=== PATIENT | male | born 1965 | race Caucasian/White ===

== ENCOUNTER 2016-06-26 07:07 | Emergency (ER) | payer OTHER ==
[2016-06-26 07:17] VITALS: BP 143/73
--- NOTE | 2016-06-26 07:39 | ED ---
Respiratory - HPI Summary HPI Summary: cough and congestion for two days. son had similar illness recently. - History of Current Complaint Chief Complaint: UCRespiratory Stated Complaint: SORE THROAT COUGH Time Seen by Provider: 06/26/16 07:16 Hx Obtained From: Patient Onset/Duration: Gradual Onset Timing: Constant Initial Severity: Moderate Current Severity: Moderate Character: Cough (Nonproductive) Sputum Amount: None Aggravating Factor(s): Deep Breaths Alleviating Factor(s): Nothing Associated Signs and Symptoms: Chills, Nasal Congestion, Sinus Discomfort - Risk Factors Status Asthmaticus Risk Factors: Negative Pulmonary Embolism Risk Factors: Negative Cardiac Risk Factors: Negative Pseudomonas Risk Factors: Negative - Allergy/Home Medications Allergies/Adverse Reactions: Allergies Allergy/AdvReac Type Severity Reaction Status Date / Time Amoxicillin [From Augmentin] Allergy Severe Rash and Verified 06/26/16 07:18 Difficulty Breathing Clavulanic Acid Allergy Severe Rash and Verified 06/26/16 07:18 [From Augmentin] Difficulty Breathing Penicillins Allergy Rash and Verified 06/26/16 07:18 Difficulty Breathing Home Medications: Home Medications Albuterol HFA INHALER* [Ventolin HFA Inhaler*] 1 puff INH Q4H PRN 06/26/16 [ History Confirmed 06/26/16] PMH/Surg Hx/FS Hx/Imm Hx Endocrine/Hematology History: Denies: Hx Anticoagulant Therapy, Hx Diabetes, Hx Thyroid Disease Cardiovascular History: Reports: Hx Hypertension - "A little bit--but not taking any medications for it at this time." Respiratory History: Reports: Hx Asthma Denies: Hx Chronic Obstructive Pulmonary Disease (COPD), Hx Lung Cancer, Hx Pneumonia, Hx Pulmonary Embolism GI History: Denies: Hx Gall Bladder Disease, Hx Gastrointestinal Bleed, Hx Ulcer, Hx Urosepsis History: Denies: Hx Kidney Stones, Hx Renal Disease Neurological History: Denies: Hx Dementia, Hx Migraine, Hx Seizures, Hx Transient Ischemic Attacks (TIA) Psychiatric History: Denies: Hx Anxiety, Hx Depression, Hx Schizophrenia, Hx Bipolar Disorder - Surgical History Surgery Procedure, Year, and Place: benign tumor removed in left side of neck 2006, tonsils 1999, tubes placed in ears 1999 Infectious Disease History: No Infectious Disease History: Denies: Hx Clostridium Difficile, Hx Hepatitis, Hx Human Immunodeficiency Virus (HIV), Hx of Known/Suspected MRSA, Hx Shingles, Hx Tuberculosis, Hx Known/ Suspected VRE, Hx Known/Suspected VRSA, History Other Infectious Disease, Traveled Outside the [place] in Last 30 Days - Family History Known Family History: Positive: Cardiac Disease, Hypertension - Social History Occupation: Employed Full-time Alcohol Use: None Substance Use Type: Reports: None Smoking Status (MU): Never Smoked Tobacco Review of Systems All Other Systems Reviewed And Are Negative: Yes Physical Exam Triage Information Reviewed: Yes Vital Signs On Initial Exam: Initial Vitals Temp Pulse Resp BP Pulse Ox 98 F 71 20 143/73 99 06/26/16 07:11 06/26/16 07:11 06/26/16 07:11 06/26/16 07:11 06/26/16 07:11 Vital Signs Reviewed: Yes Appearance: Positive: Ill-Appearing - frequent dry cough with what appears like malaise but still pleasant and non toxic., Obese. Negative: Pain Distress Skin: Positive: Warm Eyes: Positive: Normal, EOMI, CLAUDE ENT: Positive: Pharynx normal, Nasal congestion, TMs normal. Negative: Pharyngeal erythema, Nasal drainage, TM bulging, TM dull, TM red, Tonsillar swelling, Tonsillar exudate, Trismus, Muffled/hoarse voice Neck: Positive: Supple, Nontender, No Lymphadenopathy. Negative: Nuchal Rigidity Respiratory/Lung Sounds: Positive: Clear to Auscultation, Breath Sounds Present. Negative: Decreased Breath Sounds, Rales, Rhonchi, Subcutaneous Emphysema Cardiovascular: Positive: Normal, RRR Abdomen Description: Positive: Nontender, No Organomegaly, Soft Musculoskeletal: Positive: Normal. Negative: Edema Left, Edema Right Neurological: Positive: Normal, Sensory/Motor Intact, Alert, Oriented to Person Place, Time, CN Intact II-III Psychiatric: Positive: Normal Diagnostics - Vital Signs Vital Signs Temp Pulse Resp BP Pulse Ox 06/26/16 07:11 98 F 71 20 143/73 99 - Laboratory Lab Statement: Any lab studies that have been ordered have been reviewed, and results considered in the medical decision making process. Disposition - Diagnoses Provider Diagnoses: Acute bronchitis Discharge - Discharge Plan Condition: Good Disposition: HOME Prescriptions: Acetaminop/Codeine 30 MG TAB* [Tylenol/Codeine 30 MG TAB*] 1 tab PO Q8H PRN #20 tab MDD 3 PRN Reason: Cough Benzonatate CAP* [Tessalon 100 MG CAP*] 100 mg PO TID PRN #20 cap PRN Reason: Cough Patient Education Materials: Viral Syndrome (ED), Acute Bronchitis (ED) Referrals: Kell Schofield [Primary Care Provider] - If Needed
== END 2016-06-26 08:02 | disposition home or self-care (01) ==
LOC: UCCORT 07:07
DX: J20.9 Acute bronchitis, unspecified (principal); I10 Essential (primary) hypertension; J45.909 Unspecified asthma, uncomplicated; E66.9 Obesity, unspecified; Z88.1 Allergy status to other antibiotic agents; Z88.0 Allergy status to penicillin
CPT/HCPCS: 99212; G0463

== ENCOUNTER 2017-12-10 08:46 | Emergency (ER) | payer OTHER ==
--- NOTE | 2017-12-10 10:00 | UC ---
Throat Pain/Nasal Luther HPI - HPI Summary HPI Summary: 52 yo male presents with sore throat, body aches, headache, and feeling hot/ cold for 2 days. He has not taken his temperature. Has been taking tylenol, ibuprofen, throat lozenges, and OTC cold and flu medication with mild relief. Denies cough, SOB, chest pain, abdominal pain. - History of Current Complaint Stated Complaint: SORE THROAT, EARS Time Seen by Provider: 12/10/17 09:59 Hx Obtained From: Patient Onset/Duration: Sudden Onset Severity: Moderate Pain Intensity: 8 Pain Scale Used: 0-10 Numeric - Allergies/Home Medications Allergies/Adverse Reactions: Allergies Allergy/AdvReac Type Severity Reaction Status Date / Time amoxicillin [From Augmentin] Allergy Severe difficulty Verified 12/10/17 09:53 breathing and rash clavulanic acid Allergy Severe difficulty Verified 12/10/17 09:53 [From Augmentin] breathing and rash Penicillins Allergy Severe difficulty Verified 12/10/17 09:53 breathing and rash PMH/Surg Hx/FS Hx/Imm Hx - Additional Past Medical History Additional PMH: None Other History Of: Negative For: HIV, Hepatitis B, Hepatitis C, Anticoagulant Therapy - Surgical History Surgical History: Yes Surgery Procedure, Year, and Place: benign tumor removed in left side of neck 2006, tonsils 1999, tubes placed in ears 1999 - Family History Known Family History: Positive: Cardiac Disease, Hypertension - Social History Occupation: Employed Full-time Lives: With Family Alcohol Use: None Substance Use Type: None Smoking Status (MU): Never Smoked Tobacco - Immunization History Most Recent Influenza Vaccination: [id number] Review of Systems Constitutional: Other - Body aches Skin: Negative Eyes: Negative ENT: Sore Throat, Sinus Congestion Respiratory: Negative Cardiovascular: Negative Gastrointestinal: Negative Neurological: Negative Psychological: Negative All Other Systems Reviewed And Are Negative: Yes Physical Exam - Summary Physical Exam Summary: GENERAL: NAD. WDWN. No pain distress. SKIN: No rashes, sores, lesions, or open wounds. HEENT: Head: AT/NC Eyes: EOM intact. Conjunctiva clear without inflammation or discharge. Ears: Hearing grossly normal. TMs intact, no bulging, erythema, or edema. Nose: Nasal mucosa pink and moist. NTTP maxillary and frontal sinus. Throat: Posterior oropharynx without exudates, erythema, or tonsillar enlargement. Uvula midline. NECK: Supple. Nontender. No lymphadenopathy. CHEST: CTAB. No r/r/w. No accessory muscle use. Breathing comfortably and in no distress. CV: RRR. Without m/r/g. Pulses intact. Cap refill <2seconds NEURO: Alert. PSYCH: Age appropriate behavior. Triage Information Reviewed: Yes Vital Signs: Vital Signs: Temp Pulse Resp BP Pulse Ox 97.8 F 72 20 137/82 98 12/10/17 09:54 12/10/17 09:54 12/10/17 09:54 12/10/17 09:54 12/10/17 09:54 Vital Signs Reviewed: Yes Throat Pain/Nasal Course/Dx - Course Course Of Treatment: Suspect viral illness. Advised to continue OTC methods and drink plenty of fluids. Rest and f/u prn. - Differential Dx/Diagnosis Provider Diagnoses: Viral syndrome Discharge - Sign-Out/Discharge Documenting (check all that apply): Patient Departure All imaging exams completed and their final reports reviewed: No Studies - Discharge Plan Condition: Stable Disposition: HOME Patient Education Materials: Guaifenesin (By mouth), Viral Syndrome (ED) Referrals: Ari Alvares MD [Primary Care Provider] - Additional Instructions: If you develop a fever, shortness of breath, chest pain, new or worsening symptoms - please call your PCP or go to the ED. 1) Please try [id number] Mucinex in addition to what you have been taking - Billing Disposition and Condition Condition: STABLE Disposition: Home - Attestation Statements Provider Attestation: I was available for consult. This patient was seen by the [facility]. The patient was not presented to, seen by, or examined by me. -[place]
[2017-12-10 10:01] VITALS: BP 137/82
== END 2017-12-10 10:36 | disposition home or self-care (01) ==
LOC: UCCORT 08:46
DX: B34.9 Viral infection, unspecified (principal); Z88.0 Allergy status to penicillin; Z88.8 Allergy status to other drugs, medicaments and biological substances
CPT/HCPCS: 99211; G0463

== ENCOUNTER 2018-01-11 10:24 | Emergency (ER) | payer OTHER ==
[2018-01-11 10:45] VITALS: BP 131/76
--- NOTE | 2018-01-11 11:13 | UC ---
General HPI - HPI Summary HPI Summary: SORE THROAT X 1 WEEK. SELF TXING WITH HONEY, TYLENOL, SALT GARGLES WITH NO RELIEF. + CHILLS BUT BROKE A SWEAT TODAY. - History of Current Complaint Chief Complaint: UCRespiratory Stated Complaint: THROAT COMPLAINT Time Seen by Provider: 01/11/18 10:53 Hx Obtained From: Patient Onset/Duration: Gradual Onset Timing: Constant Pain Intensity: 8 - Allergy/Home Medications Allergies/Adverse Reactions: Allergies Allergy/AdvReac Type Severity Reaction Status Date / Time amoxicillin [From Augmentin] Allergy Severe difficulty Verified 01/11/18 10:35 breathing and rash clavulanic acid Allergy Severe difficulty Verified 01/11/18 10:35 [From Augmentin] breathing and rash Penicillins Allergy Severe difficulty Verified 01/11/18 10:35 breathing and rash Home Medications: Home Medications Acetaminophen TAB* [Tylenol TAB*] 650 mg PO Q4H PRN 01/11/18 [History Confirmed 01/11/18] PMH/Surg Hx/FS Hx/Imm Hx Previously Healthy: Yes Other History Of: Negative For: HIV, Hepatitis B, Hepatitis C, Anticoagulant Therapy - Surgical History Surgical History: Yes Surgery Procedure, Year, and Place: benign tumor removed in left side of neck 2006, tonsils 1999, tubes placed in ears 1999 - Family History Known Family History: Positive: Cardiac Disease, Hypertension - Social History Occupation: Employed Full-time Alcohol Use: Rare Substance Use Type: None Smoking Status (MU): Never Smoked Tobacco Household Exposure Type: Cigarettes - Immunization History Most Recent Influenza Vaccination: [id number] Vaccination Up to Date: Yes Review of Systems Constitutional: Chills Skin: Negative Eyes: Negative ENT: Sore Throat Respiratory: Negative Cardiovascular: Negative Gastrointestinal: Negative Genitourinary: Negative Motor: Negative Neurovascular: Negative Musculoskeletal: Negative Neurological: Negative Psychological: Negative Is Patient Immunocompromised?: No All Other Systems Reviewed And Are Negative: Yes Physical Exam Triage Information Reviewed: Yes Appearance: Well-Appearing Vital Signs: Initial Vital Signs Temp 97 F 01/11/18 10:36 Pulse 81 01/11/18 10:36 Resp 24 01/11/18 10:36 BP 131/76 01/11/18 10:36 Pulse Ox 98 01/11/18 10:36 Vital Signs Reviewed: Yes Eyes: Positive: Conjunctiva Clear ENT: Positive: Pharyngeal erythema - SLIGHT, TMs normal, Uvula midline. Negative: Nasal congestion, Nasal drainage, Hoarse voice Neck: Positive: Supple, Nontender, No Lymphadenopathy Respiratory: Positive: Lungs clear, Normal breath sounds Cardiovascular: Positive: RRR, No Murmur Abdomen Description: Positive: Nontender, No Organomegaly, Soft Bowel Sounds: Positive: Present Musculoskeletal: Positive: ROM Intact Neurological: Positive: Alert Psychological: Positive: Age Appropriate Behavior Skin Exam: Normal Diagnostics - Laboratory Diagnostic Studies Completed/Ordered: RAPID STREP=NEG. TX SUPPORTIVE. Course/Dx - Differential Dx - Multi-Symptom Provider Diagnoses: PHARYNGITIS Discharge - Sign-Out/Discharge Documenting (check all that apply): Patient Departure All imaging exams completed and their final reports reviewed: No Studies - Discharge Plan Condition: Stable Disposition: HOME Patient Education Materials: Pharyngitis (ED) Referrals: Ari Alvares MD [Primary Care Provider] - Additional Instructions: FOLLOW UP IN 3 DAYS IF NOT BETTER OR SOONER IF WORSE. - Billing Disposition and Condition Condition: STABLE Disposition: Home
== END 2018-01-11 11:30 | disposition home or self-care (01) ==
LOC: UCCORT 10:24
DX: J02.9 Acute pharyngitis, unspecified (principal); Z88.0 Allergy status to penicillin; Z88.1 Allergy status to other antibiotic agents
CPT/HCPCS: 87070; 87651; 99211; G0463

== ENCOUNTER 2018-01-15 07:38 | Emergency (ER) | payer OTHER ==
[2018-01-15 08:02] VITALS: BP 133/76
--- NOTE | 2018-01-15 08:25 | UC ---
Throat Pain/Nasal Luther HPI - HPI Summary HPI Summary: 52 year old male with sore throat. (+) cough. Neg strep at OV previously nad not better. No fever. "Scratchy" throat that not better. No SOB. No vomiting. No n/v/d - History of Current Complaint Chief Complaint: UCRespiratory Stated Complaint: SORE THROAT, BILATERAL EARS - RECHECK Time Seen by Provider: 01/15/18 08:03 Hx Obtained From: Patient Onset/Duration: Gradual Onset Severity: Moderate Pain Intensity: 8 Associated Signs & Symptoms: Positive: Sinus Discomfort, Nasal Discharge - Allergies/Home Medications Allergies/Adverse Reactions: Allergies Allergy/AdvReac Type Severity Reaction Status Date / Time amoxicillin [From Augmentin] Allergy Severe difficulty Verified 01/15/18 07:57 breathing and rash clavulanic acid Allergy Severe difficulty Verified 01/15/18 07:57 [From Augmentin] breathing and rash Penicillins Allergy Severe difficulty Verified 01/15/18 07:57 breathing and rash PMH/Surg Hx/FS Hx/Imm Hx Previously Healthy: Yes Other History Of: Negative For: HIV, Hepatitis B, Hepatitis C, Anticoagulant Therapy - Surgical History Surgical History: Yes Surgery Procedure, Year, and Place: benign tumor removed in left side of neck 2006, tonsils 1999, tubes placed in ears 1999 - Family History Known Family History: Positive: Cardiac Disease, Hypertension - Social History 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 Alcohol Use: Rare Substance Use Type: None Smoking Status (MU): Never Smoked Tobacco Household Exposure Type: Cigarettes - Immunization History Most Recent Influenza Vaccination: [id number] Vaccination Up to Date: Yes Review of Systems Constitutional: Fatigue ENT: Sore Throat, Ear Ache, Nasal Discharge, Sinus Congestion, Sinus Pain/ Tenderness Respiratory: Cough Is Patient Immunocompromised?: No All Other Systems Reviewed And Are Negative: Yes Physical Exam Triage Information Reviewed: Yes Appearance: Well-Appearing, No Pain Distress, Well-Nourished Vital Signs: Initial Vital Signs Temp 97.9 F 01/15/18 07:57 Pulse 72 01/15/18 07:57 Resp 20 01/15/18 07:57 BP 133/76 01/15/18 07:57 Pulse Ox 98 01/15/18 07:57 Vital Signs Reviewed: Yes Eye Exam: Normal ENT Exam: Normal ENT: Positive: Pharynx normal, Nasal congestion, Nasal drainage, TM dull. Negative: Pharyngeal erythema, TM bulging, TM red, Tonsillar swelling, Tonsillar exudate Dental Exam: Normal Neck exam: Normal Neck: Positive: 1 Respiratory Exam: Normal Cardiovascular Exam: Normal Musculoskeletal Exam: Normal Neurological Exam: Normal Psychological Exam: Normal Skin Exam: Normal Throat Pain/Nasal Course/Dx - Course Course Of Treatment: appears to be viral pharyngitis. normal exam essentially . discussed recheck strep but patient declined. discussed labs to check CBC / mono but patient declined. likely viral at this time and offer magic mouthwash . RTO if any concerns. - Differential Dx/Diagnosis Differential Diagnosis/HQI/PQRI: Mononucleosis, Otitis Media, Pharyngitis, Sinusitis, Tonsillitis, URI Provider Diagnoses: URI. Pharyngitis Discharge - Sign-Out/Discharge Documenting (check all that apply): Patient Departure All imaging exams completed and their final reports reviewed: No Studies - Discharge Plan Condition: Good Disposition: HOME Prescriptions: Magic Mouth Was-GRACIE/MAAL/LIDO* 5 ml SWISH SPIT QID #120 ml Patient Education Materials: Upper Respiratory Infection (ED) Referrals: Ari Alvares MD [Primary Care Provider] - 4 Days Additional Instructions: Please consider flonase and claritin to help with your congestion . - Billing Disposition and Condition Condition: GOOD Disposition: Home
== END 2018-01-15 08:43 | disposition home or self-care (01) ==
LOC: UCCORT 07:38
DX: J06.9 Acute upper respiratory infection, unspecified (principal); J02.9 Acute pharyngitis, unspecified; Z88.0 Allergy status to penicillin
CPT/HCPCS: 99212; G0463

== ENCOUNTER 2018-01-30 09:41 | Emergency (ER) | payer OTHER ==
[2018-01-30 10:25] VITALS: BP 139/92
--- NOTE | 2018-01-30 10:57 | UC ---
UC General HPI - HPI Summary HPI Summary: yesterday felt a pain and crunch in R shoulder area while playing with son. - History of Current Complaint Chief Complaint: UCTrauma Stated Complaint: RIGHT ARM SPORTS INJURY Time Seen by Provider: 01/30/18 10:27 Hx Obtained From: Patient Onset/Duration: Sudden Onset Timing: Constant Pain Intensity: 10 Aggravating: movement - Allergy/Home Medications Allergies/Adverse Reactions: Allergies Allergy/AdvReac Type Severity Reaction Status Date / Time amoxicillin [From Augmentin] Allergy Severe difficulty Verified 01/30/18 10:25 breathing and rash clavulanic acid Allergy Severe difficulty Verified 01/30/18 10:25 [From Augmentin] breathing and rash Penicillins Allergy Severe difficulty Verified 01/30/18 10:25 breathing and rash PMH/Surg Hx/FS Hx/Imm Hx Cardiovascular History: Hypertension - borderline, not tx Other History Of: Negative For: HIV, Hepatitis B, Hepatitis C, Anticoagulant Therapy - Surgical History Surgical History: Yes Surgery Procedure, Year, and Place: benign tumor removed in left side of neck 2006, tonsils 1999, tubes placed in ears 1999 - Family History Known Family History: Positive: Cardiac Disease, Hypertension - Social History Occupation: Employed Full-time Lives: With Family Alcohol Use: Rare Substance Use Type: None Smoking Status (MU): Never Smoked Tobacco Household Exposure Type: Cigarettes - Immunization History Most Recent Influenza Vaccination: [id number] Vaccination Up to Date: Yes Review of Systems All Other Systems Reviewed And Are Negative: Yes Constitutional: Positive: Negative Skin: Positive: Negative Eyes: Positive: Negative ENT: Positive: Negative Respiratory: Positive: Negative Cardiovascular: Positive: Negative Gastrointestinal: Positive: Negative Genitourinary: Positive: Negative Motor: Positive: Negative Neurovascular: Positive: Negative Musculoskeletal: Positive: Negative Neurological: Positive: Negative Psychological: Positive: Negative Physical Exam Triage Information Reviewed: Yes Appearance: Well-Appearing Vital Signs: Initial Vital Signs Temp 96.8 F 01/30/18 10:21 Pulse 78 01/30/18 10:21 Resp 16 01/30/18 10:21 BP 139/92 01/30/18 10:21 Pulse Ox 100 01/30/18 10:21 Vital Signs Reviewed: Yes Eyes: Positive: Conjunctiva Clear ENT: Positive: Normal ENT inspection Neck: Positive: Supple, Nontender, No Lymphadenopathy Respiratory: Positive: Lungs clear, Normal breath sounds Cardiovascular: Positive: RRR, No Murmur Abdomen Description: Positive: Nontender, No Organomegaly, Soft Bowel Sounds: Positive: Present Musculoskeletal: Positive: Other: - RUE: slight sulcus proximal bicep tendon that is tender as well. tender to anterior shoulder and along bicep mm. limited rom shoulder and unable to flex bicep due to pain. Elbow, forearm, wrsit and hand are non tender with full s/v/m function. Neurological: Positive: Alert Psychological: Positive: Age Appropriate Behavior Skin Exam: Normal Diagnostics - Radiology No standard instances Radiology Interpretation Completed By: Radiologist - R shoulder=Negative for fracture or dislocation. #. Mild AC joint osteoarthritis. #. Small burden of calcific tendinopathy of the rotator cuff. Course/Dx - Course Course Of Treatment: no fx or dislocation on xray. PE supports proximal bicep tendon injury. - Differential Dx - Multi-Symptom Provider Diagnoses: Proximal R bicep tendon injury Discharge - Sign-Out/Discharge Documenting (check all that apply): Patient Departure All imaging exams completed and their final reports reviewed: Yes - Discharge Plan Condition: Stable Disposition: HOME Prescriptions: Naproxen [Naprosyn 500 mg tab] 500 mg PO BID 5 Days #10 tablet Patient Education Materials: Tendon Rupture (ED) Forms: *Work Release Referrals: Rodolfo House MD [Medical Doctor] - 1 Day Additional Instructions: SLING DURING DAY, REMOVE AT BEDTIME UNTIL CLEARED. - Billing Disposition and Condition Condition: STABLE Disposition: Home - Attestation Statements Provider Attestation: Per institutional requirements, I have reviewed the chart, however, I was not consulted specifically or made aware of this patient by the midlevel provider. I did not personally evaluate, interact with , or disposition this patient.
== END 2018-01-30 11:26 | disposition home or self-care (01) ==
LOC: UCCORT 09:41
DX: S29.002A Unspecified injury of muscle and tendon of back wall of thorax, initial encounter (principal); X50.0XXA Overexertion from strenuous movement or load, initial encounter; Y92.9 Unspecified place or not applicable; Z88.0 Allergy status to penicillin; Z88.8 Allergy status to other drugs, medicaments and biological substances
CPT/HCPCS: 99213; G0463

== ENCOUNTER 2018-02-05 08:04 | Emergency (ER) | payer OTHER ==
[2018-02-05 08:20] VITALS: BP 137/75
--- NOTE | 2018-02-05 08:33 | UC ---
Throat Pain/Nasal Luther HPI - HPI Summary HPI Summary: Per interpreter and translator "Bilat ear pain, headache, cough and sore throat, body aches. " He denies fevers or chills. He has a history of asthma. Does not have an albuterol inhaler. Notes mild possible wheezing. Notes for head pressure. Positive nasal congestion and discharge. He was seen recently for shoulder pain and given naproxen. Denies severe body aches or severe sore throat. - History of Current Complaint Chief Complaint: UCGeneralIllness Stated Complaint: ST/AKBAR/BI LAT EARS Time Seen by Provider: 02/05/18 08:29 Pain Intensity: 8 - Allergies/Home Medications Allergies/Adverse Reactions: Allergies Allergy/AdvReac Type Severity Reaction Status Date / Time amoxicillin [From Augmentin] Allergy Severe difficulty Verified 02/05/18 08:17 breathing and rash clavulanic acid Allergy Severe difficulty Verified 02/05/18 08:17 [From Augmentin] breathing and rash Penicillins Allergy Severe difficulty Verified 02/05/18 08:17 breathing and rash PMH/Surg Hx/FS Hx/Imm Hx Previously Healthy: Yes Respiratory History: Asthma Other History Of: Negative For: HIV, Hepatitis B, Hepatitis C, Anticoagulant Therapy - Surgical History Surgical History: Yes Surgery Procedure, Year, and Place: benign tumor removed in left side of neck 2006, tonsils 1999, tubes placed in ears 1999 - Family History Known Family History: Positive: Cardiac Disease, Hypertension - Social History Alcohol Use: Rare Substance Use Type: None Smoking Status (MU): Never Smoked Tobacco Household Exposure Type: Cigarettes - Immunization History Most Recent Influenza Vaccination: [id number] Vaccination Up to Date: Yes Review of Systems All Other Systems Reviewed And Are Negative: Yes Constitutional: Positive: Fatigue Skin: Positive: Negative Eyes: Positive: Negative ENT: Positive: Sore Throat, Nasal Discharge, Sinus Congestion, Sinus Pain/ Tenderness Respiratory: Positive: Cough Cardiovascular: Positive: Negative Gastrointestinal: Positive: Negative Genitourinary: Positive: Negative Motor: Positive: Negative Neurovascular: Positive: Negative Musculoskeletal: Positive: Negative Neurological: Positive: Negative Psychological: Positive: Negative Is Patient Immunocompromised?: No Physical Exam Triage Information Reviewed: Yes Appearance: Well-Appearing, No Pain Distress, Ill-Appearing - Mild. Positive nasal congestion and mild cough. Vital Signs: Initial Vital Signs Temp 96.5 F 11/24/18 08:18 Pulse 78 02/05/18 08:18 Resp 18 02/05/18 08:18 BP 137/75 02/05/18 08:18 Pulse Ox 98 02/05/18 08:18 Vital Signs Reviewed: Yes Eye Exam: Normal ENT: Positive: Pharyngeal erythema - Mild with positive postnasal drip., Nasal congestion, Nasal drainage, TMs normal, Sinus tenderness - Frontal bilaterally, Uvula midline. Negative: Tonsillar swelling, Tonsillar exudate Dental Exam: Normal Neck exam: Normal Neck: Positive: Supple, Nontender, No Lymphadenopathy Respiratory Exam: Normal Respiratory: Positive: Lungs clear, Normal breath sounds, No respiratory distress, No accessory muscle use. Negative: Crackles, Rhonchi, Stridor, Wheezing Cardiovascular Exam: Normal Cardiovascular: Positive: RRR, Pulses Normal Abdomen Description: Positive: Nontender, Soft Musculoskeletal Exam: Normal Neurological Exam: Normal Psychological Exam: Normal Skin Exam: Normal Throat Pain/Nasal Course/Dx - Course Course Of Treatment: No evidence for bacterial infection. Sinus tenderness has only been for 2 days which is not long enough to constitute a bacterial infection. Educated on having albuterol on hand with history of asthma. Patient understood me well and is very agreeable with plan. OTC Flonase and Mucinex. Follow up if symptoms worsen. - Differential Dx/Diagnosis Differential Diagnosis/HQI/PQRI: Laryngitis, Otitis Media, Pharyngitis, Sinusitis, URI Provider Diagnoses: Viral upper respiratory infection, bronchitis, asthma. Discharge - Sign-Out/Discharge Documenting (check all that apply): Patient Departure All imaging exams completed and their final reports reviewed: No Studies - Discharge Plan Condition: Stable Disposition: HOME Prescriptions: Albuterol HFA INHALER* [Ventolin HFA Inhaler*] 2 puff INH Q4H PRN #1 mdi PRN Reason: Cough Patient Education Materials: Acute Bronchitis (ED), Cold Symptoms (ED) Referrals: Ari Alvares MD [Primary Care Provider] - Additional Instructions: There is no evidence for bacterial infection. Taking flonase and mucinex OTC can help relieve your symptoms. I have given you an albuterol inhaler, which can help as well with the cough. You shoudl always keep one on hand since you have asthma history. - Billing Disposition and Condition Condition: STABLE Disposition: Home
== END 2018-02-05 08:55 | disposition home or self-care (01) ==
LOC: UCCORT 08:04
DX: J06.9 Acute upper respiratory infection, unspecified (principal); J45.909 Unspecified asthma, uncomplicated; Z88.0 Allergy status to penicillin; Z88.8 Allergy status to other drugs, medicaments and biological substances
CPT/HCPCS: 99212; G0463

== ENCOUNTER 2018-02-09 08:00 | Emergency (ER) | payer OTHER ==
[2018-02-09 08:23] VITALS: BP 136/88
--- NOTE | 2018-02-09 08:26 | UC ---
Throat Pain/Nasal Luther HPI - HPI Summary HPI Summary: Pt presents to with progressive cough, congestion, sore throat and sinus congestion. Pt was evaluated at 4 days ago with sinus congestion. Pt was given nasal spray and MDI with little help. Pt states he feels he is getting worse - has tactile fevers, cough, wheeze, head congestion, and sinus pressure. Pt has taken Mucinex x 1 with little improvement. Pt's last MDI at midnight. Pt has been taking cough drops without improvement. Pt states feels fatigue and poor sleep related to coughing. No n/v/d. No chest pain. Pt's medications reviewed this visit - History of Current Complaint Chief Complaint: UCRespiratory Stated Complaint: SORE THROAT, COUGH Time Seen by Provider: 02/09/18 08:24 Hx Obtained From: Patient, Medical Records - 02/05 visit Onset/Duration: Gradual Onset Severity: Moderate Pain Intensity: 9 Pain Scale Used: 0-10 Numeric - Allergies/Home Medications Allergies/Adverse Reactions: Allergies Allergy/AdvReac Type Severity Reaction Status Date / Time amoxicillin [From Augmentin] Allergy Severe difficulty Verified 02/09/18 08:19 breathing and rash clavulanic acid Allergy Severe difficulty Verified 02/09/18 08:19 [From Augmentin] breathing and rash Penicillins Allergy Severe difficulty Verified 02/09/18 08:19 breathing and rash Home Medications: Home Medications Ascorbic Acid TAB* [Vitamin C TAB*] 500 mg PO DAILY 02/09/18 [History Confirmed 02/09/18] Multivitamin [Multivitamins] 1 cap PO DAILY 02/09/18 [History Confirmed 02/09/18 ] PMH/Surg Hx/FS Hx/Imm Hx Previously Healthy: Yes Other History Of: Negative For: HIV, Hepatitis B, Hepatitis C, Anticoagulant Therapy - Surgical History Surgical History: Yes Surgery Procedure, Year, and Place: benign tumor removed in left side of neck 2006, tonsils 1999, tubes placed in ears 1999 - Family History Known Family History: Positive: Cardiac Disease, Hypertension - Social History Occupation: Employed Full-time Lives: With Family Alcohol Use: Rare Substance Use Type: None Smoking Status (MU): Never Smoked Tobacco Household Exposure Type: Cigarettes - Immunization History Most Recent Influenza Vaccination: [id number] Vaccination Up to Date: Yes Review of Systems All Other Systems Reviewed And Are Negative: Yes Constitutional: Positive: Fatigue ENT: Positive: Sore Throat, Sinus Congestion, Sinus Pain/Tenderness Respiratory: Positive: Cough Neurovascular: Positive: Negative Neurological: Positive: Negative Physical Exam - Summary Physical Exam Summary: Vital Signs Reviewed: Yes A+Ox3, no distress Eyes: Conjunctiva Clear, CLAUDE. EOM intact and full ENT: Hearing grossly normal TM x 2 clear, turbinates inflammed and boggy, post nasal drip, mmoist, uvula midline, no exudate, no erythema Neck: Positive: Supple Respiratory: Positive: coarse persistent cough, scattered wheeze, no rhonci + BS throughout Cardiovascular: RRR nl s1, s2 no m/r CBT <2 sec abd soft + BS nt/nd no guarding, no distension Musculoskeletal Exam: MAO x 4 without difficulty Strength Intact, ROM Intact Neurological: Positive: Alert, + sensation throughout Psychological: Positive: Normal Response To Family Skin: Positive: no rash, no ecchymosis Triage Information Reviewed: Yes Vital Signs: Initial Vital Signs Temp 97.3 F 02/09/18 08:16 Pulse 89 02/09/18 08:16 Resp 21 02/09/18 08:16 BP 136/88 02/09/18 08:16 Pulse Ox 98 02/09/18 08:16 Re-Evaluation - Re-Evaluation First Eval Re-Evaluation Time: 09:10 Change: Improved - wheezing resolved still mild cough states feels better will Rx prednisone doxy hydrate continue flonase albuterol return precautions work note Throat Pain/Nasal Course/Dx - Course Course Of Treatment: pt present with persistent cough, sore throat, congestion, post nasal drip progressive x 1 week. Pt has been using MDI and nasal spray with little improvement. On exam VSS. Pt with coarse, persistent cough. diffuse wheeze. turbiantes inflammed with thick PND. will give duoneb and reassess - Differential Dx/Diagnosis Provider Diagnosis: Acute bronchitis Discharge - Sign-Out/Discharge Documenting (check all that apply): Patient Departure All imaging exams completed and their final reports reviewed: No Studies - Discharge Plan Condition: Stable Disposition: HOME Prescriptions: Albuterol 2.5MG/3ML (0.083%)* [Ventolin 2.5 MG/3 ML NEB.KAMALJIT*] 2.5 mg INH Q4H # 30 neb.kamaljit DOXYcycline CAP(*) [DOXYcycline 100MG CAP(*)] 100 mg PO BID #20 cap predniSONE TAB* [Deltasone TAB*] 50 mg PO DAILY #5 tab Patient Education Materials: Acute Bronchitis (ED) Forms: *Work Release Referrals: Ari Alvares MD [Primary Care Provider] - Additional Instructions: -Take antibiotics exactly as prescribed until gone -Use your albuterol (puffer or nebulizer) every 4-6 hours for the next 3 days - then as needed -Stay well hydrated - avoid excess caffeine and all alcohol - eat regular, healthy meals - humidify the air in the room where you sleep - boil water, run a hot steam shower, vaporizer, cups of water by heat register - okay to take over the counter decongestant and cough medication - Take antibiotics and prednisone as prescribed until gone - These infections are spread by secretions - do NOT share eating or drinking utensils - clean items you share with other people such as cell phones, computer mouse, TV remote, computer tablets,etc.. Once you have been antibiotics for 2 days, change your toothbrush and your pillowcase. -Contact your doctor to arrange a follow-up appointment this week. Call your doctor, return here or go to the emergency department with any questions or concerns - Billing Disposition and Condition Condition: STABLE Disposition: Home
[2018-02-09] MEDS ORDERED: Albuterol/Ipratropium NEB.SOL* Albuterol 2.5 MG/Ipratropium 0.5 MG 3 ML INH ONE (08:32)
== END 2018-02-09 09:24 | disposition home or self-care (01) ==
LOC: UCCORT 08:00
DX: J20.9 Acute bronchitis, unspecified (principal); Z88.0 Allergy status to penicillin; Z88.8 Allergy status to other drugs, medicaments and biological substances
CPT/HCPCS: 99212; A9270-GY; G0463

== ENCOUNTER 2018-08-04 09:12 | Emergency (ER) | payer OTHER ==
[2018-08-04 09:28] VITALS: BP 140/92
--- NOTE | 2018-08-04 09:46 | ED ---
Throat Pain/Nasal Congestion - HPI Summary HPI Summary: 52 yr old male with bilateral ear pain, sinus pressure, runny nose. No fever or chills. No SOB. No COugh. Onset of symptoms four days ago. No NVD. No other complaints. Symptoms are moderate. - History of Current Complaint Chief Complaint: UCGeneralIllness Time Seen by Provider: 08/04/18 09:38 - Allergies/Home Medications Allergies/Adverse Reactions: Allergies Allergy/AdvReac Type Severity Reaction Status Date / Time amoxicillin [From Augmentin] Allergy Severe difficulty Verified 08/04/18 09:28 breathing and rash clavulanic acid Allergy Severe difficulty Verified 08/04/18 09:28 [From Augmentin] breathing and rash Penicillins Allergy Severe difficulty Verified 08/04/18 09:28 breathing and rash PMH/Surg Hx/FS Hx/Imm Hx Endocrine/Hematology History: Denies: Hx Anticoagulant Therapy, Hx Diabetes, Hx Thyroid Disease Cardiovascular History: Reports: Hx Hypertension - "A little bit--but not taking any medications for it at this time." Respiratory History: Reports: Hx Asthma Denies: Hx Chronic Obstructive Pulmonary Disease (COPD), Hx Lung Cancer, Hx Pneumonia, Hx Pulmonary Embolism GI History: Denies: Hx Gall Bladder Disease, Hx Gastrointestinal Bleed, Hx Ulcer, Hx Urosepsis History: Denies: Hx Kidney Stones, Hx Renal Disease Neurological History: Denies: Hx Dementia, Hx Migraine, Hx Seizures, Hx Transient Ischemic Attacks (TIA) Psychiatric History: Denies: Hx Anxiety, Hx Depression, Hx Schizophrenia, Hx Bipolar Disorder - Surgical History Surgery Procedure, Year, and Place: benign tumor removed in left side of neck 2006, tonsils 1999, tubes placed in ears 1999 Infectious Disease History: No Infectious Disease History: Denies: Hx Clostridium Difficile, Hx Hepatitis, Hx Human Immunodeficiency Virus (HIV), Hx of Known/Suspected MRSA, Hx Shingles, Hx Tuberculosis, Hx Known/ Suspected VRE, Hx Known/Suspected VRSA, History Other Infectious Disease, Traveled Outside the [place] in Last 30 Days - Family History Known Family History: Positive: Cardiac Disease, Hypertension - Social History Alcohol Use: None Substance Use Type: Reports: None Smoking Status (MU): Never Smoked Tobacco Review of Systems Constitutional: Negative Positive: Ear Ache, Nasal Discharge All Other Systems Reviewed And Are Negative: Yes Physical Exam Triage Information Reviewed: Yes Vital Signs On Initial Exam: Initial Vitals Temp Pulse Resp BP Pulse Ox 97.8 F 90 18 140/92 97 08/04/18 09:23 08/04/18 09:23 08/04/18 09:23 08/04/18 09:23 08/04/18 09:23 Vital Signs Reviewed: Yes Appearance: Positive: Well-Appearing Skin: Positive: Warm, Skin Color Reflects Adequate Perfusion Head/Face: Positive: Normal Head/Face Inspection Eyes: Positive: EOMI, CLAUDE ENT: Positive: Pharynx normal, Nasal congestion, TM red - bilateral, Uvula midline Neck: Positive: Supple, Nontender Respiratory/Lung Sounds: Positive: Clear to Auscultation, Breath Sounds Present Cardiovascular: Positive: RRR. Negative: Murmur Abdomen Description: Negative: Distended Musculoskeletal: Positive: Strength/ROM Intact Neurological: Positive: Sensory/Motor Intact, Alert, Oriented to Person Place, Time, CN Intact II-III, Speech Normal Psychiatric: Positive: Normal Diagnostics - Vital Signs Vital Signs Temp Pulse Resp BP Pulse Ox 08/04/18 09:23 97.8 F 90 18 140/92 97 - Laboratory Lab Statement: Any lab studies that have been ordered have been reviewed, and results considered in the medical decision making process. EENT Course/Dx - Course Course Of Treatment: 52 yr old with bilateral OM. Rx Biaxin - Diagnoses Provider Diagnoses: Otitis media of both ears, Hypertension Discharge - Sign-Out/Discharge Documenting (check all that apply): Patient Departure All imaging exams completed and their final reports reviewed: No Studies - Discharge Plan Condition: Good Disposition: HOME Prescriptions: Clarithromycin TAB* [Biaxin 500 MG TAB*] 500 mg PO BID #20 tab Patient Education Materials: Ear Infection (ED), Hypertension (ED) Referrals: Ari Alvares MD [Primary Care Provider] - 3 Days - Billing Disposition and Condition Condition: GOOD Disposition: Home
== END 2018-08-04 09:51 | disposition home or self-care (01) ==
LOC: UCCORT 09:12
DX: H66.93 Otitis media, unspecified, bilateral (principal); I10 Essential (primary) hypertension
CPT/HCPCS: 99212; G0463

== ENCOUNTER 2018-12-02 08:52 | Emergency (ER) | payer OTHER ==
--- OUTSIDE RECORDS SUMMARY | 2018-12-02 09:07 | XMS REPORT | Continuity of Care Document ---
:1965 External Reference #:[id number] Author Name Ari Alvares MD (transmitted by agent of provider Nereyda Oliva) Address [address] [place] [address] Care Team Providers Name Role Phone Song Coughlin MD - Family Medicine Care Team Information Vice President Of Recruiting [phone] Ari Alvares MD - Family Care Team Information Vice President Of Recruiting Medicine Problems Active Problems Provider Date Asthma Onset: 04/13/2016 Social History Type Date Description Comments Sex Unknown ETOH Use Rarely consumes alcohol New Years only Tobacco Use Start: Unknown Patient has never smoked Recreational Drug Use Denies Drug Use Smoking Status Reviewed: 11/09/18 Patient has never smoked Exercise Type/Frequency Exercises regularly walks daily Allergies, Adverse Reactions, Alerts Active Allergies Reaction Severity Comments Date Augmentin 05/23/2013 Hayfever 01/31/2018 Amoxicillin 03/18/2018 Clavulanate 03/18/2018 Medications Active Medications SIG Qnty Indications Ordering Date Provider Phentermine HCL 1 by mouth every 30tabs E66.3 Ari 11/09/2018 37.5mg day, 1/2 hour MD Dia Tablets before the meal or 2 hours after the meal Suprep Bowel Prep Kit Take according to 354ml Neftali Ramirez 06/01/2018 the instructions MD Ministerio 17.5-3.13-1.6GM/177ML you received the Solution afternoon before and morning of your procedure. Atorvastatin Calcium 1 by mouth every 90tabs E78.5 Ari 05/06/2018 day MD Dia 10mg Tablets Sleep Aid take 2 tablets Sun Ari 08/16/2017 25mg Capsules and Wed MD Dia Acetaminophen 2 by mouth as Unknown 500mg needed Tablets Multivitamin Adult 1 by mouth every Unknown day Tablets Tums 1 tab by mouth as Unknown 500mg Chewtabs needed Ventolin HFA inhale two puffs by cholo J45.998 Ari mouth every 4 hours MD Dia 108(90Base) mcg/Act as needed Aerosol Ibuprofen 200 400-600mg every 6 Unknown 200mg hours as needed for Tablets pain. Calcium 600 1 tab daily Unknown 600mg Tablets Immunizations CPT Code Status Date Vaccine Lot # [id number] Given 05/06/2018 Tdap - Tetanus/Diptheria/Acellular 7735E/Tdap/ Boostrix Pertussis 64883 Given 01/10/2015 Influenza Virus 3Yrs & Over 46528 Given 01/04/2014 Influenza Virus 3Yrs & Over 68196 Given 01/04/2013 Influenza Virus 3Yrs & Over 15489 Given 12/15/2011 Influenza Virus 3Yrs & Over 94434 Given 03/19/2008 Tdap - Tetanus/Diptheria/Acellular Pertussis 80029 Given 12/22/2007 Influenza Virus 3Yrs & Over 85208 Given 02/15/2007 Influenza Virus 3Yrs & Over Vital Signs Date Vital Result Comment 11/09/2018 11:54am Weight 335.38 lb Heart Rate 83 /min BP Systolic 136 mmHg BP Diastolic 90 mmHg O2 % BldC Oximetry 97 % 05/06/2018 10:53am Height 71.25 inches 5'11.25" Weight 344.00 lb Heart Rate 74 /min BP Systolic Sitting 134 mmHg BP Diastolic Sitting 84 mmHg Respiratory Rate 18 /min O2 % BldC Oximetry 97 % BMI (Body Mass Index) 47.6 kg/m2 Results Test Date Facility Test Result H/L Range Note Laboratory test 06/14/2018 [facility] SEE RESULT 1 , [address] [place] [address] [phone] 1 [id number] 2 SEE RESULT BELOW Name: WAYNE GAO : [address]: Neftali Mandel MD Acct: [id number] Unit: [id number] AGE: 52 Location: [facility] Re06/14/18 SEX: M Status: DEP REF SPEC: [id number] HAYLEE: 06/14/18- SUBM DR: Neftali Mandel MD REQ: [id number] RECD: 06/16/18 STATUS: NELSON LAURENT DR: Ari Alvares MD _ ORDERED: LEVEL 4 COMMENTS: [id number] FINAL DIAGNOSIS Colon, sigmoid, biopsy: -- Tubular adenoma. -- No high grade dysplasia or malignancy. CLINICAL HISTORY Screening/Surveillance for malignancy in asymptomatic patient POST-OPERATIVE DIAGNOSIS Colonoscopy: (2) polyps removed with snare GROSS DESCRIPTION The specimen is received in formalin labeled, Sigmoid Polyp, and consists of two cordova irregular to polypoid soft tissue fragments measuring 0.4 x 0.4 x 0.2 cm and 0.6 x 0.4 x 0.3 cm. The largest fragment is inked, bisected and the specimen is entirely submitted in one cassette. Signed by and Reported on: Savana Merino MD 06/17/18 3213 END OF REPORT DEPARTMENT OF PATHOLOGY, [address] [place] [address] Dickson Sosa M.D. Director [facility] # [id number] Procedures Date Code Description Status 06/14/2018 50082 Repair Hernia Umbilical > 5 Yrs, Reducible Completed 06/14/2018 [id number] Colonoscopy Completed Medical Devices Description No Information Available Encounters Description No Information Available Assessments Date Code Description Provider 11/09/2018 E66.3 Overweight Ari Alvares MD 06/14/2018 Z01.818 Encounter for other preprocedural Neftali Mandel MD examination 06/14/2018 Z12.11 Encounter for screening for malignant Neftali Mandel MD neoplasm of colon 06/14/2018 D12.5 Benign neoplasm of sigmoid colon Neftali Mandel MD Plan of Treatment Future Appointment(s):02/06/2019 10:45 am - Ari Alvares MD at [facility]11/09/2018 - Ari Alvares MDE66.3 OverweightNew Medication: Phentermine HCL 37.5 mg - 1 by mouth every day, 1/2 hour before the meal or 2 hours after the mealFollow up:3 months Functional Status Description No Information Available Mental Status Description No Information Available Referrals Description No Information Available
[2018-12-02 09:19] VITALS: BP 129/80
--- NOTE | 2018-12-02 09:37 | UC ---
Throat Pain/Nasal Luther HPI - HPI Summary HPI Summary: Patient presents to urgent care with 2-3 days of progressive sinus congestion sore throat and cough. Patient denies fevers or chills. Patient has nausea vomiting. Patient is a low-grade fever. Patient has been taking over-the- counter antipyretics. Patient has not taken any decongestants. Patient's son was diagnosed with upper restraint infection and placed her on antibiotics. Patient has a history of asthma and has MDI but has not used it. Patient without any rash. No nausea vomiting. Patient's medications reviewed this visit. - History of Current Complaint Chief Complaint: UCRespiratory Stated Complaint: CONGESTION SORE THROAT Time Seen by Provider: 12/02/18 09:37 Hx Obtained From: Patient Onset/Duration: Gradual Onset Pain Intensity: 8 Pain Scale Used: 0-10 Numeric - Allergies/Home Medications Allergies/Adverse Reactions: Allergies Allergy/AdvReac Type Severity Reaction Status Date / Time amoxicillin [From Augmentin] Allergy Severe Rash Verified 12/02/18 09:20 clavulanic acid Allergy Severe Rash Verified 12/02/18 09:20 [From Augmentin] Penicillins Allergy Severe Rash Verified 12/02/18 09:20 Home Medications: Home Medications Ascorbic Acid TAB* [Vitamin C TAB*] 500 mg PO DAILY 12/02/18 [History Confirmed 12/02/18] Atorvastatin* [Lipitor*] 40 mg PO DAILY 12/02/18 [History Confirmed 12/02/18] Phentermine HCl 37.5 mg PO DAILY 12/02/18 [History Confirmed 12/02/18] PMH/Surg Hx/FS Hx/Imm Hx Previously Healthy: Yes Respiratory History: Asthma Other History Of: Negative For: HIV, Hepatitis B, Hepatitis C, Anticoagulant Therapy - Surgical History Surgical History: Yes Surgery Procedure, Year, and Place: benign tumor removed in left side of neck 2006, tonsils 1999, tubes placed in ears 1999 - Family History Known Family History: Positive: Cardiac Disease, Hypertension, Non-Contributory - Social History 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 EOM intact and full ENT: Hearing grossly normal TM with fluid b/l TM no retractions, turbinates inflammed and boggy,. + PND, mmoist, uvula midline, no exudate, no erythema Neck: Positive: Supple Respiratory: Positive: No respiratory distress, No accessory muscle use + CTA throughout no w/r Cardiovascular: RRR nl s1, s2 no m/r CBT <2 sec abd soft + BS nt/nd no guarding, no distension Musculoskeletal Exam: MAO x 4 without difficulty Strength Intact, ROM Intact Neurological: Positive: Alert, + sensation throughout Psychological: Positive: Normal Response To examiner Skin: Positive: no rash, no ecchymosis Triage Information Reviewed: Yes Vital Signs: Initial Vital Signs Temp 97.5 F 12/02/18 09:11 Pulse 80 12/02/18 09:11 Resp 16 12/02/18 09:11 BP 129/80 12/02/18 09:11 Pulse Ox 98 12/02/18 09:11 Throat Pain/Nasal Course/Dx - Course Course Of Treatment: Patient presents to urgent care reporting progressive sinus congestion sore throat post nasal drip and cough. Patient with some mild wheezing. Patient has fevers or chills. Patient has been taking Tenormin slow improvement. Patient has a history of asthma for which he is immediate. On exam vital signs are stable. Patient does have sinus congestion and fluid in both ears. Postnasal drip. Patient seemed consistent with sinusitis. Discussed with patient. We'll prescribe nasal spray and MDI. Patient afebrile for 48 hours. We'll fill prescription for doxycycline. Secretion precautions discussed. Return precautions discussed. Patient comfortable with plan. - Differential Dx/Diagnosis Provider Diagnosis: Rhinosinusitis, Upper respiratory infection Discharge ED - Sign-Out/Discharge Documenting (check all that apply): Patient Departure All imaging exams completed and their final reports reviewed: No Studies - Discharge Plan Condition: Stable Disposition: HOME Prescriptions: Albuterol HFA INHALER* [Ventolin HFA Inhaler*] 2 puff INH Q4H PRN #1 mdi PRN Reason: wheeze DOXYcycline CAP(*) [DOXYcycline 100MG CAP(*)] 100 mg PO BID #20 cap Fluticasone NASAL SPRAY 50MCG* [Flonase NASAL SPRAY 50MCG*] 2 spray BOTH NARES DAILY #1 btl Patient Education Materials: Upper Respiratory Infection (ED) Referrals: Ari Alvares MD [Primary Care Provider] - Additional Instructions: - Stay well hydrated. Drink plenty of non-alcoholic,non-caffinated beverages - These infections are spread by oral secretions. Do not share eating or drinking utensils. Frequent hand washing is important. Clean items that may get your secretions on them such as cell phones, ipads, computer mouse, television remotes. Once you have been on antbiotics for 2 days, change your pillowcase and your toothbrush - Okay to alternate ibuprofen (Advil, Motrin) and Tylenol every 3 hours for pain. Take with food. Do not take for more than 4-5 days - Use nasal spray daily as prescribed - Take a decongestant (Claritin-D, Felicia-D, Zyrtec-D) - If your symptoms persist - okay to start antibiotics after 36-24 hours - Contact your doctor or return here with questions or concerns - Billing Disposition and Condition Condition: STABLE Disposition: Home
== END 2018-12-02 10:16 | disposition home or self-care (01) ==
LOC: UCCORT 08:52
DX: J32.9 Chronic sinusitis, unspecified (principal); J06.9 Acute upper respiratory infection, unspecified; J45.909 Unspecified asthma, uncomplicated; Z88.1 Allergy status to other antibiotic agents; Z88.0 Allergy status to penicillin
CPT/HCPCS: 87651; 99212; G0463

== ENCOUNTER 2019-06-01 07:03 | Emergency (ER) | payer OTHER ==
--- OUTSIDE RECORDS SUMMARY | 2019-06-01 07:13 | XMS REPORT | Continuity of Care Document ---
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 [phone] Ari Alvares MD - Family Care Team Information Canoe Maker Medicine Problems Active Problems Provider Date Asthma Onset: 04/13/2016 Obesity JHON Pickett Onset: 05/03/2019 Mixed hyperlipidemia JHON Pickett Onset: 05/03/2019 Osteoarthritis of knee JHON Pickett Onset: 05/03/2019 Tonsillectomy and adenoidectomy JHON Pickett Onset: 05/03/2019 Benign neoplasm of skin of neck JHON Pickett Onset: 05/03/2019 Allergic rhinitis JHON Pickett Onset: 05/03/2019 Myringotomy and insertion of tympanic ventilation JHON Pickett Onset: 2019 tube Social History Type Date Description Comments Sex Unknown ETOH Use Rarely consumes alcohol New Years only Tobacco Use Start: Unknown Patient has never smoked Recreational Drug Use Denies Drug Use Smoking Status Reviewed: 05/03/19 Patient has never smoked Exercise Type/Frequency Exercises regularly walks daily Allergies, Adverse Reactions, Alerts Active Allergies Reaction Severity Comments Date Augmentin 05/23/2013 Hayfever 01/31/2018 Amoxicillin Hives 03/18/2018 Clavulanate Hives 03/18/2018 Medications Active Medications SIG Qnty Indications Ordering Provider Date Phentermine HCL 1 by mouth every 30tabs E66.3 Ari 11/09/2018 37.5mg day, 1/2 hour MD Dia Tablets before the meal or 2 hours after the meal Atorvastatin Calcium 1 by mouth every 90tabs E78.5 Ari 05/06/2018 10mg day MD Dia Tablets Sleep Aid take 2 tablets Ari 08/16/2017 25mg Capsules Sun and Mon MD Dia nights Acetaminophen 2 by mouth as Unknown 500mg needed Tablets Multivitamin Adult 1 by mouth every Unknown day Tablets Tums 1 tab by mouth Unknown 500mg Chewtabs as needed Ventolin HFA inhale two puffs 8units J45.998 Ari 108(90Base) by mouth every 4 MD Dia mcg/Act Aerosol hours as needed Ibuprofen 200 400-600mg every Unknown 200mg 6 hours as Tablets needed for pain. Calcium 600 1 tab daily Unknown 600mg Tablets History Medications Azithromycin 2 tabs by 6tabs J06.9 Ari Alvares, 02/08/2019 - 250mg mouth today 02/17/2019 Tablets then 1 tab by mouth daily Immunizations CPT Code Status Date Vaccine Lot # [id number] Given 12/23/2018 Influenza Virus Vaccine, Quadrivalent, Split, Preservative Free [id number] Given 05/06/2018 Tdap - Tetanus/Diptheria/Acellular 7735E/Tdap/ Boostrix Pertussis 85560 Given 01/10/2015 Influenza Virus 3Yrs & Over 77346 Given 01/04/2014 Influenza Virus 3Yrs & Over 43631 Given 01/04/2013 Influenza Virus 3Yrs & Over 89552 Given 12/15/2011 Influenza Virus 3Yrs & Over 67897 Given 03/19/2008 Tdap - Tetanus/Diptheria/Acellular Pertussis 58844 Given 12/22/2007 Influenza Virus 3Yrs & Over 65720 Given 02/15/2007 Influenza Virus 3Yrs & Over Vital Signs Date Vital Result Comment 05/03/2019 12:53pm Weight 305.38 lb BP Systolic Sitting 128 mmHg BP Diastolic Sitting 60 mmHg 02/17/2019 10:34am Weight 296.31 lb BP Systolic Sitting 124 mmHg BP Diastolic Sitting 76 mmHg Results Test Acquired Date Facility Test Result H/L Range Note Laboratory test 02/03/2019 [facility] Strep NEGATIVE Negative finding Laboratory test 12/02/2018 [facility] Rapid Strep Negative Negative [address] [place] [address] [phone] 1 Admin Dir: [id number] Procedures Date Code Description Status 06/14/2018 [id number] Colonoscopy Completed Medical Devices Description No Information Available Encounters Type Date Location Provider Dx Diagnosis Office Visit 02/17/2019 [facility] Ari E66.01 Morbid (severe) 10:30a MD Dia obesity due to excess calories Office Visit 02/08/2019 [facility] Jessie J06.9 Acute upper 2:00p JHON Grullon respiratory infection, unspecified Office Visit 02/03/2019 [facility] Dawna Squires J02.9 Acute pharyngitis, 11:51a Walk-in at [facility] unspecified Drugs Office Visit 11/09/2018 [facility] Ari E66.3 Overweight 11:45a MD Dia Assessments Date Code Description Provider 05/03/2019 J45.909 Unspecified asthma, uncomplicated JHON Pickett 05/03/2019 J30.89 Other allergic rhinitis JHON Pickett 05/03/2019 M19.90 Unspecified osteoarthritis, unspecified JHON Pickett site 05/03/2019 E66.8 Other obesity JHON Pickett 05/03/2019 R53.83 Other fatigue JHON Pickett 02/17/2019 E66.01 Morbid (severe) obesity due to excess Ari Alvares MD calories 02/08/2019 J06.9 Acute upper respiratory infection, JHON Rudolph unspecified 02/03/2019 J02.9 Acute pharyngitis, unspecified JHON Giron 11/09/2018 E66.3 Overweight Ari Alvares MD Plan of Treatment Future Appointment(s):08/31/2019 1:00 pm - JHON Pickett at [facility] - JHON PickettJ45.909 Unspecified asthma, hfbarznnkyyqbW86.89 Other allergic rhinitisNew Labs:Basic Metabolic Panel, Ordered: 05/03/19CBC Auto Diff , Ordered: 05/03/19Lipid Profile (Trig/Chol/HDL), Ordered: 05/03/19Liver Function Panel, Ordered: 05/03/19TSH (Thyroid Stim Horm), Ordered: Hemoglobin A1c (Glyco HGB), Ordered: 05/03/19Uric Acid, Ordered: M19.90 Unspecified osteoarthritis, unspecified siteE66.8 Other eztgrkcN25.83 Other fatigue Functional Status Description No Information Available Mental Status Description No Information Available Referrals Description No Information Available
--- OUTSIDE RECORDS SUMMARY | 2019-06-01 07:13 | XMS REPORT | Continuity of Care Document ---
:1965 External Reference #:[id number] Author Name Audrey Jackson PA Address [address] [place] [address]. 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[employer] Problems Active Problems Provider Date Arthralgia of the lower leg Freddie Joyner MD, FACS Onset: 05/14/2011 Contusion of knee Fredide Joyner MD, FACS Onset: 05/14/2011 Localized, primary osteoarthritis Freddie Joyner MD, FACS Onset: 2011 Juvenile osteochondrosis of lower Freddie Joyner MD, FACS Onset: 2011 extremity, excluding foot Contusion of lower leg Freddie Joyner MD, FACS Onset: 06/15/2011 Derangement of knee Audrey Jackson PA Onset: 03/31/2019 Social History Type Date Description Comments Sex Unknown Tobacco Use Start: Unknown Never Smoked Cigarettes ETOH Use Denies alcohol use Recreational Drug Use Denies Drug Use Tobacco Use Start: Unknown Patient denies history of smoking Smoking Status Reviewed: 03/31/19 Patient denies history of smoking Allergies, Adverse Reactions, Alerts Active Allergies Reaction Severity Comments Date Augmentin 04/08/2011 Amoxicillin 04/08/2011 Medications Active Medications SIG Qnty Indications Ordering Provider Date Phentermine HCL Take One Tablet By Unknown 37.5mg Mouth Every Day 30 Tablets Minutes Before A Meal Or 2 Hours After A Meal Maximum Daily Dose 1 Atorvastatin Calcium Take One Tablet By Unknown Mouth Every Day 10mg Tablets Azithromycin Take Two Tablets By Unknown 250mg Mouth AT Once On Tablets The First Day Then Take One Daily Thereafter Multi For Him 1 by mouth every Unknown Capsules day Calcium 600 1 tab by mouth Unknown 600mg every daily Tablets Tylenol 2 tab by mouth as Unknown 325mg Capsules needed Immunizations Description No Information Available Vital Signs Date Vital Result Comment 03/31/2019 8:39am BP Systolic 137 mmHg BP Diastolic 80 mmHg Body Temperature 97.1 F Heart Rate 83 /min Height 72 inches 6'0" Weight 300.00 lb BMI (Body Mass Index) 40.7 kg/m2 BSA (Body Surface Area) 2.53 m2 [place] body weight in kilograms 81 kg O2 % BldC Oximetry 99 % 12/06/2013 10:28am BP Systolic Sitting Right Arm 138 mmHg BP Diastolic Sitting Right Arm 80 mmHg Height 72 inches 6'0" Weight 335.00 lb BMI (Body Mass Index) 45.4 kg/m2 BSA (Body Surface Area) 2.65 m2 Results Description No Information Available Procedures Description No Information Available Medical Devices Description No Information Available Encounters Type Date Location Provider Dx Diagnosis Office Visit 03/31/2019 Orthopaedic Office Audrey Jackson, M17.11 Unilateral primary 8:45a [place] osteoarthritis, right knee M23.8x1 Other internal derangements of right knee Assessments Date Code Description Provider 03/31/2019 M17.11 Unilateral primary osteoarthritis, right knee Audrey Jackson PA 03/31/2019 M23.8x1 Other internal derangements of right knee Audrey Jackson PA Plan of Treatment No Information Available Functional Status Description No Information Available Mental Status Description No Information Available Referrals Description No Information Available
--- OUTSIDE RECORDS SUMMARY | 2019-06-01 07:13 | XMS REPORT | Continuity of Care Document ---
:1965 External Reference #:[id number] Author Name Audrey Jackson PA Address [address] [place] [address]. 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 [phone] Problems Active Problems Provider Date Arthralgia of the lower leg Freddie Joyner MD, FACS Onset: 05/14/2011 Contusion of knee Freddie Joyner MD, FACS Onset: 05/14/2011 Localized, primary [...] Available Vital Signs Date Vital Result Comment 04/26/2019 9:57am BP Systolic Sitting Left Arm 146 mmHg BP Diastolic Sitting Left Arm 81 mmHg 03/31/2019 8:39am BP Systolic 137 mmHg BP Diastolic 80 mmHg Body Temperature 97.1 F Heart Rate 83 /min Height 72 inches 6'0" Weight 300.00 lb BMI (Body Mass Index) 40.7 kg/m2 BSA (Body Surface Area) 2.53 m2 [place] body weight in kilograms 81 kg O2 % BldC Oximetry 99 % Results Description No Information Available Procedures Description No Information Available Medical Devices Description No Information Available Encounters Type Date Location Provider Dx Diagnosis Office Visit 04/26/2019 Orthopaedic Office Audrey Jackson, M17.11 Unilateral primary 10:00a [place] osteoarthritis, right knee M23.8x1 Other internal derangements of right knee Office Visit 03/31/2019 8:45a Orthopaedic Office Audrey Jackson, M25.561 Pain in [place] right knee M17.11 Unilateral primary osteoarthritis, right knee M23.8x1 Other internal derangements of right knee Assessments Date Code Description Provider 04/26/2019 M17.11 Unilateral primary osteoarthritis, right knee Audrey Jackson PA 04/26/2019 M23.8x1 Other internal derangements of right knee Audrey Jackson PA 03/31/2019 M25.561 Pain in right knee Audrey Jackson PA 03/31/2019 M17.11 Unilateral primary osteoarthritis, right knee Audrey Jackson PA 03/31/2019 M23.8x1 Other internal derangements of right knee Audrey Jackson PA Plan of Treatment 04/26/2019 - Audrey Jackson PAM17.11 Unilateral primary osteoarthritis, right kneeComments:Patient is doing well. He may proceed with all activities as tolerated. Follow-up as needed.M23.8x1 Other internal derangements of right kneeAllFollow up:prn Functional Status Description No Information Available Mental Status Description No Information Available Referrals Description No Information Available
[2019-06-01 07:25] VITALS: BP 127/78
--- NOTE | 2019-06-01 08:38 | UC ---
Abdominal Pain Male HPI - HPI Summary HPI Summary: 53-year-old male comes in with chief complaint of left lower quadrant abdominal pain. Started last evening. Has been having some diarrhea since last evening. Has not seen any blood in the stool. No fevers measured. No history of any abdominal surgeries. No known history of diverticulitis or diverticulosis. No urinary symptoms. Denies any testicular pain or flank pain. Pain is about a 6 out of 10. Pain is worse with movement. - History of Current Complaint Chief Complaint: UCGI Stated Complaint: STOMACH PROBLEMS Time Seen by Provider: 06/01/19 07:28 Pain Intensity: 6 - Allergies/Home Medications Allergies/Adverse Reactions: Allergies Allergy/AdvReac Type Severity Reaction Status Date / Time amoxicillin [From Augmentin] Allergy Severe Rash Verified 06/01/19 07:18 clavulanic acid Allergy Severe Rash Verified 06/01/19 07:18 [From Augmentin] Penicillins Allergy Severe Rash Verified 06/01/19 07:18 Home Medications: Home Medications Multivitamin [Multivitamins] 1 cap PO DAILY 02/09/18 [History Confirmed 06/01/19 ] Calcium Carbonate/Vitamin D3 [Calcium 600 + Vit D Tablet] 1 tab PO DAILY [History Confirmed 06/01/19] Doxylamine Succinate [Sleep Aid] 50 mg PO .QSUN & MON NIGHTS 06/01/18 [History Confirmed 06/01/19] Ibuprofen TAB* [Advil TAB*] 400 mg PO Q6H PRN 06/01/18 [History Confirmed ] Albuterol HFA INHALER* [Ventolin HFA Inhaler*] 2 puff INH Q4H PRN #1 mdi [Rx Confirmed 06/01/19] Ascorbic Acid TAB* [Vitamin C TAB*] 500 mg PO DAILY 12/02/18 [History Confirmed 06/01/19] Atorvastatin* [Lipitor*] 40 mg PO DAILY 12/02/18 [History Confirmed 06/01/19] Fluticasone NASAL SPRAY 50MCG* [Flonase NASAL SPRAY 50MCG*] 2 spray BOTH NARES DAILY PRN 06/01/19 [History Confirmed 06/01/19] Sulfamethox/Trimethoprim DS* [Bactrim DS 800/160 TAB*] 1 tab PO BID #14 tab [Rx] metroNIDAZOLE [Flagyl 500 MG TAB] 500 mg PO QID #28 tab 06/01/19 [Rx] PMH/Surg Hx/FS Hx/Imm Hx Previously Healthy: Yes Endocrine History: Dyslipidemia Respiratory History: Asthma Other History Of: Negative For: HIV, Hepatitis B, Hepatitis C, Anticoagulant Therapy - Surgical History Surgical History: Yes Surgery Procedure, Year, and Place: benign tumor removed in left side of neck 2006, tonsillectomy 1999, tubes placed in ears 1999 - Family History Known Family History: Positive: Cardiac Disease, Hypertension, Non-Contributory - Social History Alcohol Use: Rare Substance Use Type: None Smoking Status (MU): Never Smoked Tobacco Household Exposure Type: Cigarettes - Immunization History Most Recent Influenza Vaccination: 1957-2036 Vaccination Up to Date: Yes Review of Systems All Other Systems Reviewed And Are Negative: Yes Constitutional: Positive: Other - SEE HPI Skin: Positive: Negative Eyes: Positive: Negative ENT: Positive: Negative Respiratory: Positive: Negative Cardiovascular: Positive: Negative Gastrointestinal: Positive: Abdominal Pain, Diarrhea Genitourinary: Positive: Negative Motor: Positive: Negative Neurovascular: Positive: Negative Musculoskeletal: Positive: Negative Neurological/Mental Status: Positive: Negative Psychological: Positive: Negative Is Patient Immunocompromised?: No Physical Exam Triage Information Reviewed: Yes Appearance: Well-Appearing, No Pain Distress, Well-Nourished Vital Signs: Initial Vital Signs Temp 97 F 06/01/19 07:21 Pulse 84 06/01/19 07:21 Resp 18 06/01/19 07:21 BP 127/78 06/01/19 07:21 Pulse Ox 98 06/01/19 07:21 Vital Signs Reviewed: Yes Eye Exam: Normal Eyes: Positive: Conjunctiva Clear Neck: Positive: Supple Respiratory: Positive: Lungs clear, Normal breath sounds, No respiratory distress Cardiovascular: Positive: RRR Abdomen Description: Positive: Other: - Tender To palpation left lower quadrant. Nontender to palpation right lower quadrant and epigastrium. Bowel Sounds: Positive: Hypoactive Musculoskeletal: Positive: Strength Intact, ROM Intact Neurological: Positive: Alert, Muscle Tone Normal Psychological: Positive: Age Appropriate Behavior Skin Exam: Normal Abd Pain Male Course/Dx - Course Course Of Treatment: Landing Worker: Ruel Nguyen Daniel, ([id number]) Data Warehousing Architect: YI ( YI) Report Date: 06/01/2019 08:07:00 Report Status: Final ====== Start of Report Content Patient Name: SOL GAO Medical Record#: [id number] Ordering Physician: Enrique Church MD Acct.#: [id number] : Age: 53 Sex: M Location: [facility] Exam Date: 06/01/19735 ADM Status: REG ER Order Information: CT ABD/PEL W/O Accession Number: [id number] CPT: 94423 CLINICAL HISTORY: llq pain COMPARISON: None relevant available at the time of dictation. TECHNIQUE: Multiple contiguous axial CT scans were obtained of the abdomen and pelvis, without intravenous contrast enhancement. Coronal and sagittal multiplanar reformations are submitted for review. Oral contrast was not administered. FINDINGS: Evaluation is limited due to the lack of intravenous contrast. This limits evaluation of the solid organs and vasculature. LUNG BASES: The lung bases are clear. LIVER: The liver is normal in shape, size, contour, and attenuation. BILE DUCTS: There is no intrahepatic or extrahepatic biliary dilatation. GALLBLADDER: Sludge is noted within the gallbladder. There is no pericholecystic inflammatory change. PANCREAS: The pancreas is normal, without mass or ductal dilatation. SPLEEN: Normal in size and appearance. UPPER GI TRACT: Evaluation of the gastrointestinal tract is limited by incomplete gastric distention. The upper GI tract is unremarkable. SMALL BOWEL AND MESENTERY: The small bowel is normal in contour, course, and caliber. There is no obstruction or dilatation. There is stranding of the mesenteric fat with several small mesenteric lymph nodes. COLON: There are multiple diverticula of the sigmoid colon. There is no pericolonic inflammatory change. ADRENALS: Normal bilaterally. KIDNEYS: The kidneys are normal in shape, size, contour, and axis. There is no hydronephrosis or nephrolithiasis. BLADDER: The bladder is smooth in contour. PELVIC ORGANS: The prostate gland is normal. The seminal vesicles are symmetric. AORTA: The aorta is normal. IVC: Unremarkable. Incidentally noted is a circumaortic left renal vein. LYMPH NODES: There is no lymphadenopathy by size criteria. ABDOMINAL WALL: There is no evidence for abdominal wall hernia. BONES AND SOFT TISSUES: There are mild diffuse degenerative changes. OTHER: None IMPRESSION: DIVERTICULOSIS. MESENTERIC PANNICULITIS <Electronically signed by Ruel Nguyen MD in OV> 06/01/19801 Dictated By: Ruel Nguyen MD Dictated Date /Time: 06/01/19758 Transcribed Date/Time: 06/01/19758 Copy to: CC:Ari Alvares MD; Enrique Church MD Imaging - [facility] Imaging - [facility] [address] [place] [address] ph ) ph ([phone]) ph ([phone]) End of Report Content ==== I discussed the CT with the patient. Patient has diverticulosis and mesenteric panniculitis. Given the abrupt onset and that diverticulitis is most common we' ll treat with Bactrim and Flagyl. CRP, CBC, CMP and lipase were drawn here in clinic. Patient is to call his primary care doctor today to follow-up with them. Mesenteric panniculitis is not treated with antibiotics but is treated more long-term and is most appropriate to have treatment started through the primary care doctor or gastroenterology. About the patient know that if he got worse with fevers chills and creased pain blood in the stool or any other concerns she should go directly to the emergency department for further evaluation and care. - Differential Dx/Clinical Impression Provider Diagnosis: LLQ abdominal pain, Mesenteric panniculitis, Diverticulosis Discharge ED - Sign-Out/Discharge Documenting (check all that apply): Patient Departure All imaging exams completed and their final reports reviewed: Yes - Discharge Plan Condition: Stable Disposition: HOME Prescriptions: metroNIDAZOLE [Flagyl 500 MG TAB] 500 mg PO QID #28 tab Sulfamethox/Trimethoprim DS* [Bactrim DS 800/160 TAB*] 1 tab PO BID #14 tab Patient Education Materials: Diverticulosis (ED), Acute Abdominal Pain (ED), Diverticulitis Diet (ED) Referrals: Ari Alvares MD [Primary Care Provider] - Lonnie Lee DO [Doctor of Osteopathy] - Additional Instructions: FOLLOW UP WITH YOUR PRIMARY DOCTOR. CALL TODAY TO ARRANGE FOLLOW UP. FOLLOW UP WITH GASTROENTEROLOGY. GO TO THE EMERGENCY DEPARTMENT IF WORSE; PAIN, FEVER, YOU FEEL ILL, BLOOD IN YOUR STOOL OR ANY QUESTIONS OR CONCERNS. - Billing Disposition and Condition Condition: STABLE Disposition: Home
[2019-06-01 13:56] LABS: ABS Basophils 0.1 10^3/ul (0-0.2); ABS Eosinophils 0.3 10^3/ul (0-0.6); ABS Lymphocytes 1.6 10^3/ul (1.0-4.8); ABS Monocytes 0.6 10^3/ul (0-0.8); ABS Neutrophils 3.9 10^3/ul (1.5-7.7); Eosinophil % 4.4 %; Hematocrit 46 % (42-52); Hemoglobin 15.7 g/dL (14.0-18.0); Lymphocyte % 24.9 %; Mean Corpuscular HGB Conc 34 g/dL (31-36); Mean Corpuscular Hemoglobin 31 pg (27-31); Mean Corpuscular Volume 90 fL (80-94); Mean Platelet Volume 7.4 fL (7.4-10.4); Platelet Count 320 10^3/uL (150-450); Red Blood Count 5.15 10^6 /uL (4.18-5.48); Red Cell Distribution Width 13 % (10-15); White Blood Count 6.4 10^3/uL (3.5-10.8)
[2019-06-01 14:06] LABS: Albumin 4.3 g/dL (3.2-5.2); Albumin/Globulin Ratio 1.8 (1-3); BUN/Creatinine Ratio 22.4 (8-20); C Reactive Protein 3.39 mg/L (<8.01); Calcium 9.8 mg/dL (8.6-10.3); Globulin 2.4 g/dL (2-4); Potassium 4.6 mmol/L (3.5-5.0); Total Bilirubin 0.6 mg/dL (0.2-1.0); Total Protein 6.7 g/dL (6.4-8.9)
== END 2019-06-01 08:50 | disposition home or self-care (01) ==
LOC: UCCORT 07:03
DX: K65.4 Sclerosing mesenteritis (principal); K57.30 Diverticulosis of large intestine without perforation or abscess without bleeding; R10.32 Left lower quadrant pain; J45.909 Unspecified asthma, uncomplicated; E78.5 Hyperlipidemia, unspecified; Z79.899 Other long term (current) drug therapy; Z88.0 Allergy status to penicillin
CPT/HCPCS: 36415; 74176; 80053; 81003; 83690; 85025; 86140; 99212; G0463